=== PATIENT | male | born 1950 | race Caucasian/White ===

== ENCOUNTER → 2017-02-10 | Day surgery (SDC) | payer OTHER ==
[2017-02-05 14:00] LABS: Basophils # (auto) 0 uL; Basophils % (auto) 0.6 % (0.0-2.0); CONDITION Y; Eosinophils # (auto) 0.2 uL; Eosinophils % (auto) 2.6 % (0.0-7.0); Hematocrit 50.5 % (41.0-53.0); Hemoglobin 17.2 g/dL (13.5-17.5); Lymphocytes # (auto) 2.4 uL; Mean Corpuscular Hemoglobin 31.4 pg (28.0-32.0); Mean Corpuscular Volume 92.2 fL (80.0-100.0); Mean Platelet Volume 8.8 fL (7.4-10.4); Monocytes # (auto) 0.8 uL; Monocytes % (auto) 10.6 % (0.0-12.0); Neutrophils # (auto) 4.3 uL; Neutrophils % (auto) 55.2 % (37.0-80.0); Platelet Count (auto) 268 10^3/uL (140-450); Red Cell Distribution Width 12.8 % (11.6-16.0); White Blood Cell 7.8 10^3/uL (4.4-10.8)
[2017-02-05 14:06] LABS: Urine Bilirubin Negative (Negative); Urine Blood Negative /uL (Negative); Urine Color Yellow (Yellow); Urine Glucose Normal (Normal); Urine Ketone Negative (Negative); Urine Nitrite Negative (Negative); Urine RBC <1 /hpf (0 - 3); Urine Squamous Epithelial Cell FEW /hpf (<5); Urine Urobilinogen Normal (Negative); Urine pH 5.5 (5.0-8.0)
[2017-02-05 14:08] LABS: BUN/Creatinine Ratio 15.7; Calcium 8.8 mg/dL (8.5-10.1); Potassium 4.1 mmol/L (3.5-5.1)
[2017-02-05 14:13] LABS: INR 0.98 (0.9-1.15); Partial Thromboplastin Time 28.7 sec (22.64-33.71); Prothrombin Time 10.7 sec (9.37-12.3)
[~2017-02-10] VITALS: Ht 175.3 cm; Wt 87.5 kg
[~2017-02-10] MED LIST: DEXAMETHASONE SOD PHOS 10MG/1ML VIAL INJ ONE; ETOMIDATE (2MG/ML) 20ML VIAL IV ONE; HYDROmorphone HCL 2 MG/ML VL IV PRN; KETOROLAC TROMETH 30 MG/ML 1ML VIAL IV ONE; KETOROLAC TROMETH 30 MG/ML 1ML VIAL ONE; LABETALOL HCL 5 MG/ML 4ML SYRINGE IV PRN; MEPERIDINE HCL (50 MG/ML) 1 ML VIAL ONE; MIDAZOLAM HCL 1MG/1ML-2 ML VIAL IV PRN; MIDAZOLAM HCL 1MG/1ML-2 ML VIAL ONE; MORPHINE SULF INJ 2 MG/ML SYRINGE 1ML IV PRN; ONDANSETRON HCL 4 MG/2 ML VIAL IV ONE; PHENYLEPHRINE HCL 10 MG/ML VL IV ONE; PROPOFOL 10 MG/ML 20 ML IV ONE; SUCCINYLCHOLINE CHLORIDE 20 MG/ML 10ML VIAL IV ONE; ceFAZolin 1GM/50ML D5W 50 ML IV ONE; ePHEDrine SULFATE 50 MG/ML AMP IV PRN; fentaNYL CITRATE 100 MCG/2 ML VL ONE
[2017-02-10 13:03] VITALS: BP 135/89
== END | disposition home or self-care (01) ==
LOC: SUR 06:50
PROVIDERS: ATTEND Urology
DX: N40.1 Benign prostatic hyperplasia with lower urinary tract symptoms (principal); I10 Essential (primary) hypertension; I25.10 Atherosclerotic heart disease of native coronary artery without angina pectoris; G30.9 Alzheimer's disease, unspecified; F02.80 Dementia in other diseases classified elsewhere, unspecified severity, without behavioral disturbance, psychotic disturbance, mood disturbance, and anxiety; Z86.73 Personal history of transient ischemic attack (TIA), and cerebral infarction without residual deficits; B19.10 Unspecified viral hepatitis B without hepatic coma
CPT/HCPCS: 36415; 52649; 80048; 81001; 85025; 85610; 85730; 87086; J0330; J0690; J1100; J1885; J2175; J2250; J2370; J2704; J3010

== ENCOUNTER 2017-09-28 07:55 | Day surgery (SDC) | payer OTHER ==
[2017-09-24 10:11] LABS: Urine Bacteria NONE SEEN /hpf (None Seen); Urine Blood Negative /uL (Negative); Urine Mucus FEW (None Seen); Urine Specific Gravity 1.019 (1.001-1.035); Urine WBC 5 /hpf (0 - 3)
[2017-09-24 10:17] LABS: Basophils # (auto) 0.1 uL; Basophils % (auto) 0.8 % (0.0-2.0); Eosinophils # (auto) 0.3 uL; Hematocrit 55.5 % (41.0-53.0); Hemoglobin 18.5 g/dL (13.5-17.5); Lymphocytes # (auto) 2.7 uL; Lymphocytes % (auto) 38.9 % (10.0-50.0); Mean Corpuscular Hemoglobin 30.5 pg (28.0-32.0); Mean Corpuscular Hgb Conc. 33.4 g/dL (32.0-36.0); Mean Corpuscular Volume 91.3 fL (80.0-100.0); Monocytes % (auto) 14.5 % (0.0-12.0); Neutrophils # (auto) 2.8 uL; Neutrophils % (auto) 41.8 % (37.0-80.0); Nucleated Red Blood Cells % 0.2 %; Platelet Count (auto) 228 10^3/uL (140-450); Red Blood Cells 6.08 10^6/uL (4.5-5.90); Red Cell Distribution Width 13.6 % (11.8-14.3); White Blood Cell 6.8 10^3/uL (4.4-10.8)
[2017-09-24 10:21] LABS: INR 1.01 (0.9-1.15); Partial Thromboplastin Time 29.2 sec (22.64-33.71)
[2017-09-24 10:25] LABS: Potassium 3.9 mmol/L (3.5-5.1)
[~2017-09-28] VITALS: Ht 175.3 cm; Wt 93.0 kg
[~2017-09-28 07:55] MED LIST changes: +AMLO10TA2 PO; +AMLO2.5T PO; -DEXAMETHASONE SOD PHOS 10MG/1ML VIAL INJ ONE; +DONE10TA40 PO; -ETOMIDATE (2MG/ML) 20ML VIAL IV ONE; +GABA300C10 PO; -HYDROmorphone HCL 2 MG/ML VL IV PRN; -KETOROLAC TROMETH 30 MG/ML 1ML VIAL IV ONE; -KETOROLAC TROMETH 30 MG/ML 1ML VIAL ONE; -LABETALOL HCL 5 MG/ML 4ML SYRINGE IV PRN; -MEPERIDINE HCL (50 MG/ML) 1 ML VIAL ONE; +METO1TAB9 PO; -MIDAZOLAM HCL 1MG/1ML-2 ML VIAL IV PRN; -MIDAZOLAM HCL 1MG/1ML-2 ML VIAL ONE; -MORPHINE SULF INJ 2 MG/ML SYRINGE 1ML IV PRN; -ONDANSETRON HCL 4 MG/2 ML VIAL IV ONE; -PHENYLEPHRINE HCL 10 MG/ML VL IV ONE; -PROPOFOL 10 MG/ML 20 ML IV ONE; +SIMV-8 PO; -SUCCINYLCHOLINE CHLORIDE 20 MG/ML 10ML VIAL IV ONE; -ceFAZolin 1GM/50ML D5W 50 ML IV ONE; -ePHEDrine SULFATE 50 MG/ML AMP IV PRN; -fentaNYL CITRATE 100 MCG/2 ML VL ONE
[2017-09-28] MEDS ORDERED: ceFAZolin 1GM/100ML 50 ML IV ONE (08:32)
[2017-09-28] MEDS ORDERED: fentaNYL CITRATE 100 MCG/2 ML VL ONE (11:10)
[2017-09-28] MEDS ORDERED: MEPERIDINE HCL (50 MG/ML) 1 ML VIAL ONE (11:10)
[2017-09-28] MEDS ORDERED: MIDAZOLAM HCL 1MG/1ML-2 ML VIAL ONE (11:10)
[2017-09-28] MEDS ORDERED: DEXAMETHASONE SOD PHOS 10MG/1ML VIAL INJ ONE (11:30)
[2017-09-28] MEDS ORDERED: ETOMIDATE (2MG/ML) 20ML VIAL IV ONE (11:33)
[2017-09-28] MEDS ORDERED: SUCCINYLCHOLINE CHLORIDE 20 MG/ML 10ML VIAL IV ONE (11:44)
[2017-09-28] MEDS ORDERED: MORPHINE SULFATE 4 MG/ML SYR/VIAL IV PRN (11:45)
[2017-09-28] MEDS ORDERED: ePHEDrine SULFATE 50 MG/ML AMP IV PRN (11:45)
[2017-09-28] MEDS ORDERED: LABETALOL HCL 5 MG/ML 4ML SYRINGE IV PRN (11:45)
[2017-09-28] MEDS ORDERED: ONDANSETRON HCL 4 MG/2 ML VIAL IV ONE (11:45)
[2017-09-28] MEDS ORDERED: KETOROLAC TROMETH 30 MG/ML 1ML VIAL IV ONE (11:45)
[2017-09-28] MEDS ORDERED: MORPHINE SULFATE 4 MG/ML SYR/VIAL IV ONE (12:00)
[2017-09-28 14:00] VITALS: BP 135/78
== END 2017-09-28 14:09 | disposition home or self-care (01) ==
LOC: SUR 07:55
PROVIDERS: ATTEND Urology
DX: N32.0 Bladder-neck obstruction (principal)
CPT/HCPCS: 36415; 52640; 80048; 81001; 82962; 85025; 85610; 85730; 88307; J0330; J0690; J1100; J2175; J2250; J3010

== ENCOUNTER 2017-09-30 17:37 | Emergency (ER) | payer OTHER ==
[~2017-09-30] VITALS: Ht 175.3 cm; Wt 93.0 kg
[2017-09-30 21:25] VITALS: BP 140/92
[2017-09-30] MEDS ORDERED: LIDOCAINE 2% JELLY 11ml (GLYDO) ONE (21:39)
== END 2017-10-01 04:42 | disposition home or self-care (01) ==
LOC: ER 17:44
DX: N13.9 Obstructive and reflux uropathy, unspecified (principal); N39.0 Urinary tract infection, site not specified; Z46.6 Encounter for fitting and adjustment of urinary device
CPT/HCPCS: 51702; 81002

== ENCOUNTER 2020-07-18 07:50 | Inpatient (IN) | payer OTHER, MEDICAID ==
[~2020-07-18] VITALS: Ht 172.7 cm; Wt 78.0 kg
[~2020-07-18 07:50] MED LIST changes: +AMLO-483 PO; +AMLO-496 PO; -AMLO10TA2 PO; -AMLO2.5T PO; -DONE10TA40 PO; +DONE1TAB88 PO
[2020-07-18] MEDS ORDERED: SODIUM CHLORIDE 0.9% 500 ML IV ONE (08:15)
[2020-07-18 08:32] LABS: Hemoglobin 19.1 g/dL (13.5-17.5)
[2020-07-18 08:35] LABS: Hematocrit 54.1 % (41.0-53.0); Mean Corpuscular Hemoglobin 32.2 pg (28.0-32.0); Mean Corpuscular Hgb Conc. 35.3 g/dL (32.0-36.0); Mean Corpuscular Volume 91.1 fL (80.0-100.0); Red Blood Cells 5.93 10^6/uL (4.5-5.90); Red Cell Distribution Width 13.8 % (11.8-14.3); White Blood Cell 4.2 10^3/uL (4.4-10.8)
[2020-07-18 08:40] LABS: Basophils % (manual) 0 (0.0-2.0); Blast Cells 0; Eosinophils % (manual) 0 (0-7); Metamyelocytes % 0; Myelocytes % 0; Promyelocytes % 0; Reactive Lymphocytes 0
[2020-07-18 08:54] LABS: Alanine Aminotransferase 32 U/L (16-61); Albumin 2.7 g/dL (3.4-5.0); Anion Gap 11 (5-15); Aspartate Aminotransferase 57 U/L (15-37); Blood Urea Nitrogen 24 mg/dL (7-18); Carbon Dioxide 19 mmol/L (21-32); Chloride 114 mmol/L (98-107); GFR African American 86 mL/min; GFR Non-African American 71 mL/min; Glucose 116 mg/dL (74-106); Magnesium 2.3 mg/dL (1.6-2.6); Potassium 3.6 mmol/L (3.5-5.1); Sodium 144 mmol/L (136-145)
[2020-07-18 08:59] LABS: Alkaline Phosphatase 91 U/L (45-117); Total Protein 7.2 g/dL (6.4-8.2)
[2020-07-18] MEDS ORDERED: AZITHROMYCIN 500MG/ 250ML 250 ML IV ONE (09:00)
[2020-07-18] MEDS ORDERED: methylPREDNISolone SOD SUCC 125 MG/2 ML VL IV ONE (09:00)
[2020-07-18] MEDS ORDERED: ONDANSETRON HCL 4 MG/2 ML VIAL IV PRN (09:30)
[2020-07-18] MEDS ORDERED: SODIUM CHLORIDE 0.9% 1,000 ML IV SCH (09:30)
[2020-07-18] MEDS ORDERED: ONDANSETRON HCL 4 MG/2 ML VIAL IV ONE (09:30)
[2020-07-18] MEDS ORDERED: MORPHINE SULFATE INJECTION 2 MG/ML SYRG IV PRN (09:30)
[2020-07-18] MEDS ORDERED: NITROGLYCERIN 0.4 MG SL TAB SL PRN (09:30)
[2020-07-18] MEDS ORDERED: TAMSULOSIN HYDROCHLORIDE 0.4 MG CAP PO ONE (09:30)
[2020-07-18] MEDS ORDERED: REMDESIVIR PER PHARMACY 0 ML IV SCH (09:45)
[2020-07-18] MEDS: BUDESONIDE (INHALATION) 180 MCG IH IN SCH ×2 (10:00→21:16)
[2020-07-18] MEDS: CHOLECALCIFEROL (VITD3) 2,000 UNIT CAP/TAB PO SCH (10:00)
[2020-07-18] MEDS: ENOXAPARIN SOD 40 MG/0.4 ML SYRINGE SC SCH ×2 (10:00→21:55)
[2020-07-18 10:15] LABS: Band Neutrophils % (manual) 8; Lymphocytes % (manual) 18 (10.0-50.0); Monocytes % (manual) 21 (0-12)
[2020-07-18] MEDS ORDERED: DexAMETHasone SOD PHOS 10MG/1ML VIAL INJ IV ONE (10:30)
[2020-07-18] MEDS ORDERED: CHOLECALCIFEROL (VITD3) 2,000 UNIT CAP/TAB PO ONE (10:30)
[2020-07-18] MEDS ORDERED: ENOXAPARIN SOD 40 MG/0.4 ML SYRINGE SC ONE (10:30)
[2020-07-18] MEDS ORDERED: METOPROLOL SUCCINATE XL 50 MG TAB PO ONE (10:30)
[2020-07-18] MEDS ORDERED: ASCORBIC ACID 1,000 MG TAB PO ONE (10:30)
[2020-07-18] MEDS ORDERED: ZINC SULFATE 220mg CAP or TAB PO ONE (10:30)
[2020-07-18] MEDS ORDERED: DONEPEZIL HYDROCHLORIDE 5 MG TAB PO ONE (10:30)
[2020-07-18] MEDS ORDERED: DOCUSATE SOD 100 MG CAP PO ONE (10:30)
[2020-07-18] MEDS ORDERED: FAMOTIDINE 20 MG TAB PO ONE (10:30)
[2020-07-18 10:36] LABS: Lactic Acid w/Reflex 2.1 mmol/L (0.4-2.0)
[2020-07-18] MEDS: DexAMETHasone SOD PHOS 10MG/1ML VIAL INJ IV SCH (11:12)
[2020-07-18] MEDS: ZINC SULFATE 220mg CAP or TAB PO SCH (11:12)
[2020-07-18] MEDS: DONEPEZIL HYDROCHLORIDE 5 MG TAB PO SCH (11:14)
[2020-07-18] MEDS: DOCUSATE SOD 100 MG CAP PO SCH ×2 (11:14→21:53)
[2020-07-18] MEDS: FAMOTIDINE 20 MG TAB PO SCH (11:18)
[2020-07-18] MEDS: METOPROLOL SUCCINATE XL 50 MG TAB PO SCH (11:19)
[2020-07-18] MEDS: ASCORBIC ACID 1,000 MG TAB PO SCH (11:22)
[2020-07-18] MEDS ORDERED: TOPI25CA5 PO (12:45)
[2020-07-18] MEDS ORDERED: PREG100C PO (12:45)
[2020-07-18] MEDS ORDERED: AML5T PO (12:45)
[2020-07-18 13:23] VITALS: BP 115/61
[2020-07-18] MEDS: GABAPENTIN 300 MG CAP PO SCH ×2 (15:23→21:54)
[2020-07-18] MEDS: IVERMECTIN 3 MG TAB PO ONE (15:24)
[2020-07-18] MEDS ORDERED: REMDESIVIR 200 MG in NS 210ml LOADING DOSE ADULT IV ONE (15:30)
[2020-07-18 16:00] VITALS: BP 140/80
[2020-07-18] MEDS: ZOCOR PO SCH (17:48)
[2020-07-18] MEDS: TAMSULOSIN HYDROCHLORIDE 0.4 MG CAP PO SCH (17:48)
[2020-07-18] MEDS: ALBUTEROL SULF HFA 90MCG INH 200DOSE IN PRN (21:16)
[2020-07-18] MEDS: amLODIPine BESYLATE 5 MG TAB PO SCH (21:55)
[2020-07-19 00:07] VITALS: BP 154/98
[2020-07-19] MEDS: GABAPENTIN 300 MG CAP PO SCH ×3 (05:38→21:35)
[2020-07-19] MEDS: BUDESONIDE (INHALATION) 180 MCG IH IN SCH ×2 (06:15→18:38)
[2020-07-19] MEDS: ALBUTEROL SULF HFA 90MCG INH 200DOSE IN PRN ×2 (06:15→18:38)
[2020-07-19 08:00] VITALS: BP 105/57
[2020-07-19 09:32] LABS: Albumin 2.8 g/dL (3.4-5.0); Calcium 8.2 mg/dL (8.5-10.1); Potassium 3.3 mmol/L (3.5-5.1)
[2020-07-19 09:35] LABS: Bilirubin, Total 0.9 mg/dL (0.2-1.0); Total Protein 7.2 g/dL (6.4-8.2)
[2020-07-19] MEDS: IVERMECTIN 3 MG TAB PO ONE (11:01)
[2020-07-19] MEDS: DexAMETHasone SOD PHOS 10MG/1ML VIAL INJ IV SCH (11:02)
[2020-07-19] MEDS: ZINC SULFATE 220mg CAP or TAB PO SCH (11:02)
[2020-07-19] MEDS: DONEPEZIL HYDROCHLORIDE 5 MG TAB PO SCH (11:03)
[2020-07-19] MEDS: DOCUSATE SOD 100 MG CAP PO SCH ×2 (11:03→21:35)
[2020-07-19] MEDS: FAMOTIDINE 20 MG TAB PO SCH (11:04)
[2020-07-19] MEDS: ENOXAPARIN SOD 40 MG/0.4 ML SYRINGE SC SCH ×2 (11:05→21:36)
[2020-07-19] MEDS: ASCORBIC ACID 1,000 MG TAB PO SCH (11:05)
[2020-07-19] MEDS: CHOLECALCIFEROL (VITD3) 2,000 UNIT CAP/TAB PO SCH (11:05)
[2020-07-19] MEDS: METOPROLOL SUCCINATE XL 50 MG TAB PO SCH (11:29)
[2020-07-19] MEDS: REMDESIVIR 100mg 100 MG in SODIUM CHL 0.9% 230 ML IV SCH (15:10)
[2020-07-19 15:55] VITALS: BP 141/90
[2020-07-19] MEDS: ZOCOR PO SCH (18:00)
[2020-07-19] MEDS: TAMSULOSIN HYDROCHLORIDE 0.4 MG CAP PO SCH (18:45)
[2020-07-19] MEDS: amLODIPine BESYLATE 5 MG TAB PO SCH (21:39)
[2020-07-19] MEDS: HYDROcodone-ACET 5/325MG TAB PO PRN (22:41)
[2020-07-20] VITALS: BP 131/53
[2020-07-20] MEDS: GABAPENTIN 300 MG CAP PO SCH ×3 (05:19→21:46)
[2020-07-20 06:04] LABS: Albumin 2.4 g/dL (3.4-5.0); Calcium 7.9 mg/dL (8.5-10.1); Potassium 3.7 mmol/L (3.5-5.1)
[2020-07-20 06:07] LABS: BUN/Creatinine Ratio 27.7; Bilirubin, Total 0.7 mg/dL (0.2-1.0); Total Protein 6.6 g/dL (6.4-8.2)
[2020-07-20] MEDS: BUDESONIDE (INHALATION) 180 MCG IH IN SCH ×2 (06:45→18:41)
[2020-07-20] MEDS: ALBUTEROL SULF HFA 90MCG INH 200DOSE IN PRN ×2 (06:45→18:41)
[2020-07-20 08:00] VITALS: BP 99/68
[2020-07-20] MEDS: ZINC SULFATE 220mg CAP or TAB PO SCH (09:39)
[2020-07-20] MEDS: DexAMETHasone SOD PHOS 10MG/1ML VIAL INJ IV SCH (09:39)
[2020-07-20] MEDS: DOCUSATE SOD 100 MG CAP PO SCH ×2 (09:40→21:46)
[2020-07-20] MEDS: CHOLECALCIFEROL (VITD3) 2,000 UNIT CAP/TAB PO SCH (09:40)
[2020-07-20] MEDS: METOPROLOL SUCCINATE XL 50 MG TAB PO SCH (09:40)
[2020-07-20] MEDS: DONEPEZIL HYDROCHLORIDE 5 MG TAB PO SCH (09:40)
[2020-07-20] MEDS: FAMOTIDINE 20 MG TAB PO SCH (09:40)
[2020-07-20] MEDS: ASCORBIC ACID 1,000 MG TAB PO SCH (09:40)
[2020-07-20] MEDS: ENOXAPARIN SOD 40 MG/0.4 ML SYRINGE SC SCH ×2 (09:41→21:45)
[2020-07-20] MEDS ORDERED: IOHEXOL 350 MG/ML 100ML IJ ONE (11:14)
[2020-07-20] MEDS: REMDESIVIR 100mg 100 MG in SODIUM CHL 0.9% 230 ML IV SCH (15:16)
[2020-07-20 16:00] VITALS: BP 118/80
[2020-07-20] MEDS: ZOCOR PO SCH (18:00)
[2020-07-20] MEDS: TAMSULOSIN HYDROCHLORIDE 0.4 MG CAP PO SCH (18:10)
[2020-07-20] MEDS: amLODIPine BESYLATE 5 MG TAB PO SCH (21:45)
[2020-07-20 23:59] VITALS: BP 112/66
[2020-07-21] MEDS: APIXABAN 5 MG TAB PO SCH ×3 (00:06→22:35)
[2020-07-21 01:56] LABS: Hematocrit 46.6 % (41.0-53.0); Hemoglobin 16.1 g/dL (13.5-17.5); Mean Corpuscular Hemoglobin 31.6 pg (28.0-32.0); Mean Corpuscular Hgb Conc. 34.5 g/dL (32.0-36.0); Mean Corpuscular Volume 91.5 fL (80.0-100.0); Red Blood Cells 5.09 10^6/uL (4.5-5.90); Red Cell Distribution Width 13.4 % (11.8-14.3); White Blood Cell 9.1 10^3/uL (4.4-10.8)
[2020-07-21] MEDS: HYDROcodone-ACET 5/325MG TAB PO PRN (02:00)
[2020-07-21 02:06] LABS: Basophils % (manual) 0 (0.0-2.0); Blast Cells 0; Eosinophils % (manual) 0 (0-7); Metamyelocytes % 0; Myelocytes % 0; Promyelocytes % 0; Reactive Lymphocytes 0
[2020-07-21 02:19] LABS: INR 1.24 (0.9-1.15); Partial Thromboplastin Time 29.5 sec (23.0-31.2)
[2020-07-21 05:11] LABS: Band Neutrophils % (manual) 3; Lymphocytes % (manual) 3 (10.0-50.0); Monocytes % (manual) 4 (0-12)
[2020-07-21] MEDS: GABAPENTIN 300 MG CAP PO SCH ×3 (05:29→22:36)
[2020-07-21 06:08] LABS: Hematocrit 45.5 % (41.0-53.0); Hemoglobin 16.1 g/dL (13.5-17.5); Mean Corpuscular Hemoglobin 32.3 pg (28.0-32.0); Mean Corpuscular Hgb Conc. 35.4 g/dL (32.0-36.0); Mean Corpuscular Volume 91.2 fL (80.0-100.0); Red Blood Cells 4.98 10^6/uL (4.5-5.90); Red Cell Distribution Width 13.5 % (11.8-14.3); White Blood Cell 8.8 10^3/uL (4.4-10.8)
[2020-07-21 06:24] LABS: Potassium 3.9 mmol/L (3.5-5.1)
[2020-07-21 06:25] LABS: Basophils % (manual) 0 (0.0-2.0); Blast Cells 0; Promyelocytes % 0; Reactive Lymphocytes 0
[2020-07-21 06:52] LABS: BUN/Creatinine Ratio 28.6; CRP High Sensitivity 7.78 mg/dL (< 0.3); Calcium 7.6 mg/dL (8.5-10.1)
[2020-07-21 07:17] LABS: INR 1.24 (0.9-1.15)
[2020-07-21] MEDS: ALBUTEROL SULF HFA 90MCG INH 200DOSE IN PRN ×2 (07:34→20:15)
[2020-07-21] MEDS: BUDESONIDE (INHALATION) 180 MCG IH IN SCH ×2 (07:34→19:30)
[2020-07-21 08:00] VITALS: BP 109/66
[2020-07-21] MEDS ORDERED: APIXABAN 5 MG TAB PO SCH (10:00)
[2020-07-21] MEDS: DexAMETHasone SOD PHOS 10MG/1ML VIAL INJ IV SCH (10:38)
[2020-07-21] MEDS: DOCUSATE SOD 100 MG CAP PO SCH ×2 (10:42→22:35)
[2020-07-21] MEDS: DONEPEZIL HYDROCHLORIDE 5 MG TAB PO SCH (10:42)
[2020-07-21] MEDS: ZINC SULFATE 220mg CAP or TAB PO SCH (10:42)
[2020-07-21] MEDS: FAMOTIDINE 20 MG TAB PO SCH (10:43)
[2020-07-21] MEDS: CHOLECALCIFEROL (VITD3) 2,000 UNIT CAP/TAB PO SCH (10:44)
[2020-07-21] MEDS: METOPROLOL SUCCINATE XL 50 MG TAB PO SCH (10:44)
[2020-07-21] MEDS: ASCORBIC ACID 1,000 MG TAB PO SCH (10:44)
[2020-07-21 11:48] LABS: Band Neutrophils % (manual) 11; Eosinophils % (manual) 1 (0-7); Lymphocytes % (manual) 11 (10.0-50.0); Metamyelocytes % 2; Monocytes % (manual) 6 (0-12); Myelocytes % 1
[2020-07-21] MEDS: REMDESIVIR 100mg 100 MG in SODIUM CHL 0.9% 230 ML IV SCH (14:59)
[2020-07-21 16:00] VITALS: BP 117/80
[2020-07-21] MEDS: ZOCOR PO SCH (18:00)
[2020-07-21] MEDS: TAMSULOSIN HYDROCHLORIDE 0.4 MG CAP PO SCH (18:08)
[2020-07-21] MEDS: amLODIPine BESYLATE 5 MG TAB PO SCH (22:36)
[2020-07-22 00:13] VITALS: BP 123/69
[2020-07-22] MEDS: HYDROcodone-ACET 5/325MG TAB PO PRN (06:23)
[2020-07-22] MEDS: GABAPENTIN 300 MG CAP PO SCH ×3 (06:23→22:34)
[2020-07-22] MEDS: BUDESONIDE (INHALATION) 180 MCG IH IN SCH ×2 (06:25→20:57)
[2020-07-22 07:30] LABS: Hematocrit 46.5 % (41.0-53.0); Hemoglobin 16.4 g/dL (13.5-17.5); Mean Corpuscular Hemoglobin 32.1 pg (28.0-32.0); Mean Corpuscular Hgb Conc. 35.2 g/dL (32.0-36.0); Mean Corpuscular Volume 91.2 fL (80.0-100.0); Red Cell Distribution Width 13.4 % (11.8-14.3); White Blood Cell 12.7 10^3/uL (4.4-10.8)
[2020-07-22 07:40] LABS: Potassium 4.1 mmol/L (3.5-5.1)
[2020-07-22 07:59] LABS: Basophils % (manual) 0 (0.0-2.0); Blast Cells 0; Eosinophils % (manual) 0 (0-7); Metamyelocytes % 0; Monocytes % (manual) 0 (0-12); Myelocytes % 0; Promyelocytes % 0; Reactive Lymphocytes 0
[2020-07-22 08:00] VITALS: BP 96/51
[2020-07-22 08:00] LABS: BUN/Creatinine Ratio 26.8; CRP High Sensitivity 12.7 mg/dL (< 0.3); Calcium 7.9 mg/dL (8.5-10.1)
[2020-07-22] MEDS: ALBUTEROL SULF HFA 90MCG INH 200DOSE IN PRN (09:02)
[2020-07-22] MEDS: DexAMETHasone SOD PHOS 10MG/1ML VIAL INJ IV SCH (09:05)
[2020-07-22] MEDS: FAMOTIDINE 20 MG TAB PO SCH (09:05)
[2020-07-22] MEDS: APIXABAN 5 MG TAB PO SCH ×2 (09:06→22:33)
[2020-07-22] MEDS: ZINC SULFATE 220mg CAP or TAB PO SCH (09:06)
[2020-07-22] MEDS: DOCUSATE SOD 100 MG CAP PO SCH ×2 (09:06→22:33)
[2020-07-22] MEDS: CHOLECALCIFEROL (VITD3) 2,000 UNIT CAP/TAB PO SCH (09:07)
[2020-07-22] MEDS: DONEPEZIL HYDROCHLORIDE 5 MG TAB PO SCH (09:07)
[2020-07-22] MEDS: ASCORBIC ACID 1,000 MG TAB PO SCH (09:07)
[2020-07-22] MEDS: METOPROLOL SUCCINATE XL 50 MG TAB PO SCH (09:08)
[2020-07-22 10:49] LABS: Band Neutrophils % (manual) 1; Lymphocytes % (manual) 4 (10.0-50.0)
[2020-07-22] MEDS: REMDESIVIR 100mg 100 MG in SODIUM CHL 0.9% 230 ML IV SCH (14:33)
[2020-07-22 16:00] VITALS: BP 132/80
[2020-07-22] MEDS: ZOCOR PO SCH (17:09)
[2020-07-22] MEDS: TAMSULOSIN HYDROCHLORIDE 0.4 MG CAP PO SCH (18:40)
[2020-07-22] MEDS: amLODIPine BESYLATE 5 MG TAB PO SCH (22:34)
[2020-07-23] VITALS: BP 112/72
[2020-07-23] MEDS: GABAPENTIN 300 MG CAP PO SCH ×3 (05:48→22:48)
[2020-07-23] MEDS: BUDESONIDE (INHALATION) 180 MCG IH IN SCH ×2 (06:24→19:10)
[2020-07-23 06:40] LABS: Potassium 4.4 mmol/L (3.5-5.1)
[2020-07-23 06:44] LABS: Hematocrit 49.7 % (41.0-53.0); Hemoglobin 17.1 g/dL (13.5-17.5); Mean Corpuscular Hemoglobin 31.5 pg (28.0-32.0); Mean Corpuscular Hgb Conc. 34.5 g/dL (32.0-36.0); Mean Corpuscular Volume 91.3 fL (80.0-100.0); Red Blood Cells 5.45 10^6/uL (4.5-5.90); Red Cell Distribution Width 13.7 % (11.8-14.3); White Blood Cell 15.5 10^3/uL (4.4-10.8)
[2020-07-23 06:55] LABS: CRP High Sensitivity 14.1 mg/dL (< 0.3); Calcium 8.2 mg/dL (8.5-10.1)
[2020-07-23 07:04] LABS: Basophils % (manual) 0 (0.0-2.0); Blast Cells 0; Eosinophils % (manual) 0 (0-7); Metamyelocytes % 0; Myelocytes % 0; Promyelocytes % 0; Reactive Lymphocytes 0
[2020-07-23 08:00] VITALS: BP 114/89
[2020-07-23 10:22] LABS: Band Neutrophils % (manual) 4; Lymphocytes % (manual) 2 (10.0-50.0); Monocytes % (manual) 7 (0-12)
[2020-07-23] MEDS: DexAMETHasone SOD PHOS 10MG/1ML VIAL INJ IV SCH (11:21)
[2020-07-23] MEDS: CHOLECALCIFEROL (VITD3) 2,000 UNIT CAP/TAB PO SCH (11:22)
[2020-07-23] MEDS: ZINC SULFATE 220mg CAP or TAB PO SCH (11:23)
[2020-07-23] MEDS: FAMOTIDINE 20 MG TAB PO SCH (11:23)
[2020-07-23] MEDS: DOCUSATE SOD 100 MG CAP PO SCH ×2 (11:24→22:47)
[2020-07-23] MEDS: APIXABAN 5 MG TAB PO SCH ×2 (11:24→22:47)
[2020-07-23] MEDS: DONEPEZIL HYDROCHLORIDE 5 MG TAB PO SCH (11:25)
[2020-07-23] MEDS: METOPROLOL SUCCINATE XL 50 MG TAB PO SCH (11:27)
[2020-07-23] MEDS: ASCORBIC ACID 1,000 MG TAB PO SCH (11:27)
[2020-07-23] MEDS: ALBUTEROL SULF 2.5 MG/0.5ML(0.5%) NEB SOLN NEB SCH ×2 (12:00→18:00)
[2020-07-23] MEDS ORDERED: FUROSEMIDE 40 MG/4 ML VIAL IV ONE (12:00)
[2020-07-23] MEDS: IPRATROPIUM BROM 0.5 MG/2.5ML INH SOL NEB SCH ×3 (14:00→22:00)
[2020-07-23] MEDS: methylPREDNISolone SOD SUCC 125 MG/2 ML VL IV SCH ×2 (15:14→22:47)
[2020-07-23] MEDS: ACETAMINOPHEN 500 MG TAB PO PRN (15:17)
[2020-07-23 15:48] VITALS: BP 115/77
[2020-07-23] MEDS: ZOCOR PO SCH (18:00)
[2020-07-23] MEDS: TAMSULOSIN HYDROCHLORIDE 0.4 MG CAP PO SCH (18:09)
[2020-07-23] MEDS: ALBUTEROL SULF HFA 90MCG INH 200DOSE IN PRN (19:10)
[2020-07-23] MEDS: amLODIPine BESYLATE 5 MG TAB PO SCH (22:48)
[2020-07-24] VITALS: BP 125/79
[2020-07-24] MEDS: IPRATROPIUM BROM 0.5 MG/2.5ML INH SOL NEB SCH ×5 (02:00→22:00)
[2020-07-24 04:27] VITALS: BP 116/91
[2020-07-24] MEDS: ALBUTEROL SULF 2.5 MG/0.5ML(0.5%) NEB SOLN NEB SCH ×4 (06:00→18:00)
[2020-07-24] MEDS: GABAPENTIN 300 MG CAP PO SCH ×3 (06:04→22:12)
[2020-07-24] MEDS: methylPREDNISolone SOD SUCC 125 MG/2 ML VL IV SCH ×3 (06:05→22:11)
[2020-07-24 08:00] VITALS: BP 110/75
[2020-07-24] MEDS: FAMOTIDINE 20 MG TAB PO SCH (09:27)
[2020-07-24] MEDS: APIXABAN 5 MG TAB PO SCH ×2 (09:27→22:12)
[2020-07-24] MEDS: DONEPEZIL HYDROCHLORIDE 5 MG TAB PO SCH (09:28)
[2020-07-24] MEDS: ZINC SULFATE 220mg CAP or TAB PO SCH (09:28)
[2020-07-24] MEDS: DOCUSATE SOD 100 MG CAP PO SCH ×2 (09:28→22:00)
[2020-07-24] MEDS: ASCORBIC ACID 1,000 MG TAB PO SCH (09:28)
[2020-07-24 09:29] LABS: Hematocrit 54.4 % (41.0-53.0); Hemoglobin 18.4 g/dL (13.5-17.5); Mean Corpuscular Hemoglobin 31.4 pg (28.0-32.0); Mean Corpuscular Hgb Conc. 33.8 g/dL (32.0-36.0); Mean Corpuscular Volume 92.7 fL (80.0-100.0); Red Blood Cells 5.86 10^6/uL (4.5-5.90); Red Cell Distribution Width 14.1 % (11.8-14.3); White Blood Cell 22.7 10^3/uL (4.4-10.8)
[2020-07-24] MEDS: CHOLECALCIFEROL (VITD3) 2,000 UNIT CAP/TAB PO SCH (09:29)
[2020-07-24 09:31] LABS: Basophils % (manual) 0 (0.0-2.0); Blast Cells 0; Eosinophils % (manual) 0 (0-7); Metamyelocytes % 0; Myelocytes % 0; Promyelocytes % 0; Reactive Lymphocytes 0
[2020-07-24 09:32] LABS: Calcium 8.5 mg/dL (8.5-10.1)
[2020-07-24 09:43] LABS: BUN/Creatinine Ratio 27.3; CRP High Sensitivity 15.1 mg/dL (< 0.3)
[2020-07-24] MEDS: METOPROLOL SUCCINATE XL 50 MG TAB PO SCH (10:00)
[2020-07-24] MEDS: BUDESONIDE (INHALATION) 180 MCG IH IN SCH ×2 (11:28→19:28)
[2020-07-24] MEDS ORDERED: APIX5TAB PO (11:50)
[2020-07-24] MEDS ORDERED: ALBUAER3 IN (11:50)
[2020-07-24] MEDS ORDERED: PRED20TA2 PO (12:00)
[2020-07-24] MEDS ORDERED: DOXY-332 PO (12:00)
[2020-07-24 12:09] LABS: Band Neutrophils % (manual) 3; Lymphocytes % (manual) 3 (10.0-50.0); Monocytes % (manual) 4 (0-12)
[2020-07-24 16:00] VITALS: BP 117/80
[2020-07-24] MEDS: ZOCOR PO SCH (18:00)
[2020-07-24] MEDS: TAMSULOSIN HYDROCHLORIDE 0.4 MG CAP PO SCH (18:32)
[2020-07-24] MEDS: ALBUTEROL SULF HFA 90MCG INH 200DOSE IN PRN (19:28)
[2020-07-24] MEDS: amLODIPine BESYLATE 5 MG TAB PO SCH (22:13)
[2020-07-25] VITALS: BP 104/68
[2020-07-25] MEDS: IPRATROPIUM BROM 0.5 MG/2.5ML INH SOL NEB SCH ×5 (02:00→17:59)
[2020-07-25] MEDS: GABAPENTIN 300 MG CAP PO SCH ×3 (05:46→21:34)
[2020-07-25] MEDS: methylPREDNISolone SOD SUCC 125 MG/2 ML VL IV SCH ×3 (05:47→21:34)
[2020-07-25] MEDS: ALBUTEROL SULF 2.5 MG/0.5ML(0.5%) NEB SOLN NEB SCH ×4 (06:00→17:59)
[2020-07-25] MEDS: BUDESONIDE (INHALATION) 180 MCG IH IN SCH ×2 (06:58→19:22)
[2020-07-25 08:00] LABS: Basophils # (auto) 0.1 10 ^3/uL (0-0.2); Eosinophils # (auto) 0 10 ^3/uL (0-0.8); Mean Corpuscular Volume 91.9 fL (80.0-100.0); Monocytes # (auto) 0.8 10 ^3/uL (0-1.3)
[2020-07-25 08:03] LABS: Basophils % (auto) 0.5 % (0.0-2.0); Hematocrit 52.2 % (41.0-53.0); Hemoglobin 18.2 g/dL (13.5-17.5); Lymphocytes # (auto) 0.4 10 ^3/uL (0.4-5.4); Lymphocytes % (auto) 1.6 % (10.0-50.0); Mean Corpuscular Hemoglobin 32.1 pg (28.0-32.0); Mean Corpuscular Hgb Conc. 34.9 g/dL (32.0-36.0); Monocytes % (auto) 3.8 % (0.0-12.0); Neutrophils # (auto) 21.3 10 ^3/uL (1.6-8.6); Neutrophils % (auto) 94.1 % (37.0-80.0); Red Blood Cells 5.68 10^6/uL (4.5-5.90); Red Cell Distribution Width 13.9 % (11.8-14.3); White Blood Cell 22.6 10^3/uL (4.4-10.8)
[2020-07-25 08:12] VITALS: BP 119/71
[2020-07-25 08:23] LABS: Potassium 4.1 mmol/L (3.5-5.1)
[2020-07-25 08:36] LABS: BUN/Creatinine Ratio 29.5
[2020-07-25 08:37] LABS: CRP High Sensitivity 8.92 mg/dL (< 0.3); Calcium 8.2 mg/dL (8.5-10.1)
[2020-07-25] MEDS: ZINC SULFATE 220mg CAP or TAB PO SCH (09:39)
[2020-07-25] MEDS: APIXABAN 5 MG TAB PO SCH ×2 (09:40→21:35)
[2020-07-25] MEDS: DONEPEZIL HYDROCHLORIDE 5 MG TAB PO SCH (09:40)
[2020-07-25] MEDS: DOCUSATE SOD 100 MG CAP PO SCH ×2 (09:40→21:34)
[2020-07-25] MEDS: ASCORBIC ACID 1,000 MG TAB PO SCH (09:41)
[2020-07-25] MEDS: CHOLECALCIFEROL (VITD3) 2,000 UNIT CAP/TAB PO SCH (09:41)
[2020-07-25] MEDS: FAMOTIDINE 20 MG TAB PO SCH (09:41)
[2020-07-25] MEDS: METOPROLOL SUCCINATE XL 50 MG TAB PO SCH (10:00)
[2020-07-25] MEDS: ALPRAZolam 0.25 MG TAB PO PRN (14:24)
[2020-07-25 16:00] VITALS: BP 126/77
[2020-07-25] MEDS: ZOCOR PO SCH (17:59)
[2020-07-25] MEDS: TAMSULOSIN HYDROCHLORIDE 0.4 MG CAP PO SCH (18:01)
[2020-07-25] MEDS: ALBUTEROL SULF HFA 90MCG INH 200DOSE IN PRN (19:22)
[2020-07-25] MEDS: MORPHINE SULFATE INJECTION 2 MG/ML SYRG IV PRN (21:36)
[2020-07-25] MEDS: amLODIPine BESYLATE 5 MG TAB PO SCH (21:36)
[2020-07-25] MEDS: HYDROcodone-ACET 5/325MG TAB PO PRN (23:21)
[2020-07-26] VITALS: BP 110/60
[2020-07-26] MEDS: MORPHINE SULFATE INJECTION 2 MG/ML SYRG IV PRN (01:23)
[2020-07-26] MEDS: ALPRAZolam 0.25 MG TAB PO PRN ×2 (03:23→10:49)
[2020-07-26] MEDS: methylPREDNISolone SOD SUCC 125 MG/2 ML VL IV SCH ×3 (05:27→21:26)
[2020-07-26] MEDS: GABAPENTIN 300 MG CAP PO SCH ×3 (05:27→21:26)
[2020-07-26] MEDS: BUDESONIDE (INHALATION) 180 MCG IH IN SCH ×2 (06:00→20:07)
[2020-07-26 08:00] VITALS: BP 117/84
[2020-07-26 08:18] LABS: Basophils # (auto) 0 10 ^3/uL (0-0.2); Basophils % (auto) 0.2 % (0.0-2.0); Eosinophils # (auto) 0 10 ^3/uL (0-0.8); Hematocrit 51.4 % (41.0-53.0); Hemoglobin 17.6 g/dL (13.5-17.5); Lymphocytes # (auto) 0.4 10 ^3/uL (0.4-5.4); Lymphocytes % (auto) 2.1 % (10.0-50.0); Mean Corpuscular Hemoglobin 31.4 pg (28.0-32.0); Mean Corpuscular Hgb Conc. 34.2 g/dL (32.0-36.0); Mean Corpuscular Volume 91.7 fL (80.0-100.0); Monocytes # (auto) 0.7 10 ^3/uL (0-1.3); Monocytes % (auto) 3.8 % (0.0-12.0); Neutrophils # (auto) 17.9 10 ^3/uL (1.6-8.6); Neutrophils % (auto) 93.9 % (37.0-80.0); Nucleated Red Blood Cells % 0.1 %; Red Blood Cells 5.61 10^6/uL (4.5-5.90); Red Cell Distribution Width 13.7 % (11.8-14.3); White Blood Cell 19.1 10^3/uL (4.4-10.8)
[2020-07-26 08:33] LABS: Potassium 4.3 mmol/L (3.5-5.1)
[2020-07-26 08:55] LABS: BUN/Creatinine Ratio 33.3
[2020-07-26 08:56] LABS: CRP High Sensitivity 6.05 mg/dL (< 0.3); Calcium 7.9 mg/dL (8.5-10.1)
[2020-07-26] MEDS: ZINC SULFATE 220mg CAP or TAB PO SCH (10:00)
[2020-07-26] MEDS: DONEPEZIL HYDROCHLORIDE 5 MG TAB PO SCH (10:00)
[2020-07-26] MEDS: DOCUSATE SOD 100 MG CAP PO SCH ×2 (10:00→21:26)
[2020-07-26] MEDS: FAMOTIDINE 20 MG TAB PO SCH (10:00)
[2020-07-26] MEDS: APIXABAN 5 MG TAB PO SCH ×2 (10:00→21:26)
[2020-07-26] MEDS: ASCORBIC ACID 1,000 MG TAB PO SCH (10:00)
[2020-07-26] MEDS: CHOLECALCIFEROL (VITD3) 2,000 UNIT CAP/TAB PO SCH (10:00)
[2020-07-26] MEDS: METOPROLOL SUCCINATE XL 50 MG TAB PO SCH (10:00)
[2020-07-26 16:00] VITALS: BP 116/80
[2020-07-26] MEDS: ZOCOR PO SCH (17:52)
[2020-07-26] MEDS: TAMSULOSIN HYDROCHLORIDE 0.4 MG CAP PO SCH (17:52)
[2020-07-26] MEDS: ACETAMINOPHEN 500 MG TAB PO PRN (20:02)
[2020-07-26] MEDS: ALBUTEROL SULF HFA 90MCG INH 200DOSE IN PRN (20:07)
[2020-07-26] MEDS: amLODIPine BESYLATE 5 MG TAB PO SCH (21:32)
[2020-07-26 23:30] VITALS: BP 109/68
[2020-07-27] MEDS: methylPREDNISolone SOD SUCC 125 MG/2 ML VL IV SCH ×3 (05:22→22:19)
[2020-07-27] MEDS: GABAPENTIN 300 MG CAP PO SCH ×3 (05:22→22:19)
[2020-07-27] MEDS: ALBUTEROL SULF HFA 90MCG INH 200DOSE IN PRN ×2 (06:32→19:56)
[2020-07-27] MEDS: BUDESONIDE (INHALATION) 180 MCG IH IN SCH ×2 (06:32→19:56)
[2020-07-27 07:08] LABS: Basophils # (auto) 0 10 ^3/uL (0-0.2); Basophils % (auto) 0.1 % (0.0-2.0); Eosinophils # (auto) 0 10 ^3/uL (0-0.8); Hematocrit 49.2 % (41.0-53.0); Hemoglobin 17.1 g/dL (13.5-17.5); Lymphocytes # (auto) 0.4 10 ^3/uL (0.4-5.4); Lymphocytes % (auto) 2.8 % (10.0-50.0); Mean Corpuscular Hgb Conc. 34.8 g/dL (32.0-36.0); Mean Corpuscular Volume 91.9 fL (80.0-100.0); Monocytes # (auto) 0.5 10 ^3/uL (0-1.3); Monocytes % (auto) 3.7 % (0.0-12.0); Neutrophils # (auto) 13.9 10 ^3/uL (1.6-8.6); Neutrophils % (auto) 93.4 % (37.0-80.0); Red Blood Cells 5.35 10^6/uL (4.5-5.90); Red Cell Distribution Width 13.1 % (11.8-14.3); White Blood Cell 14.8 10^3/uL (4.4-10.8)
[2020-07-27 07:33] LABS: Potassium 4.5 mmol/L (3.5-5.1)
[2020-07-27 07:58] LABS: CRP High Sensitivity 4.12 mg/dL (< 0.3); Calcium 7.6 mg/dL (8.5-10.1)
[2020-07-27 08:23] VITALS: BP 118/74
[2020-07-27] MEDS: ASCORBIC ACID 1,000 MG TAB PO SCH (11:25)
[2020-07-27] MEDS: FAMOTIDINE 20 MG TAB PO SCH (11:25)
[2020-07-27] MEDS: DONEPEZIL HYDROCHLORIDE 5 MG TAB PO SCH (11:25)
[2020-07-27] MEDS: APIXABAN 5 MG TAB PO SCH ×2 (11:25→22:19)
[2020-07-27] MEDS: DOCUSATE SOD 100 MG CAP PO SCH ×2 (11:25→22:19)
[2020-07-27] MEDS: CHOLECALCIFEROL (VITD3) 2,000 UNIT CAP/TAB PO SCH (11:25)
[2020-07-27] MEDS: ZINC SULFATE 220mg CAP or TAB PO SCH (11:25)
[2020-07-27] MEDS: METOPROLOL SUCCINATE XL 50 MG TAB PO SCH (11:25)
[2020-07-27 16:00] VITALS: BP 121/75
[2020-07-27] MEDS: ZOCOR PO SCH (18:00)
[2020-07-27] MEDS: TAMSULOSIN HYDROCHLORIDE 0.4 MG CAP PO SCH (18:16)
[2020-07-27 22:00] VITALS: BP 116/67
[2020-07-27] MEDS: amLODIPine BESYLATE 5 MG TAB PO SCH (22:00)
[2020-07-27] MEDS: ACETAMINOPHEN 500 MG TAB PO PRN (23:10)
[2020-07-27] MEDS: ALPRAZolam 0.25 MG TAB PO PRN (23:11)
[2020-07-28] VITALS: BP 120/74
[2020-07-28] MEDS: methylPREDNISolone SOD SUCC 125 MG/2 ML VL IV SCH ×3 (06:36→21:59)
[2020-07-28] MEDS: GABAPENTIN 300 MG CAP PO SCH ×3 (06:36→22:00)
[2020-07-28] MEDS: BUDESONIDE (INHALATION) 180 MCG IH IN SCH ×2 (06:40→22:00)
[2020-07-28 07:03] LABS: Basophils # (auto) 0 10 ^3/uL (0-0.2); Basophils % (auto) 0.1 % (0.0-2.0); Eosinophils # (auto) 0 10 ^3/uL (0-0.8); Eosinophils % (auto) 0.1 % (0.0-7.0); Hemoglobin 17.4 g/dL (13.5-17.5); Lymphocytes # (auto) 0.4 10 ^3/uL (0.4-5.4); Lymphocytes % (auto) 2.9 % (10.0-50.0); Mean Corpuscular Hemoglobin 31.5 pg (28.0-32.0); Mean Corpuscular Hgb Conc. 34.2 g/dL (32.0-36.0); Monocytes # (auto) 0.6 10 ^3/uL (0-1.3); Neutrophils # (auto) 14.1 10 ^3/uL (1.6-8.6); Neutrophils % (auto) 92.9 % (37.0-80.0); Nucleated Red Blood Cells % 0.1 %; Red Blood Cells 5.54 10^6/uL (4.5-5.90); Red Cell Distribution Width 13.6 % (11.8-14.3); White Blood Cell 15.2 10^3/uL (4.4-10.8)
[2020-07-28 07:31] LABS: BUN/Creatinine Ratio 33.7; Calcium 8.1 mg/dL (8.5-10.1); Magnesium 2.9 mg/dL (1.6-2.6); Potassium 4.6 mmol/L (3.5-5.1)
[2020-07-28 08:00] VITALS: BP 111/75
[2020-07-28] MEDS: ASCORBIC ACID 1,000 MG TAB PO SCH (10:00)
[2020-07-28] MEDS: DONEPEZIL HYDROCHLORIDE 5 MG TAB PO SCH (10:00)
[2020-07-28] MEDS: FAMOTIDINE 20 MG TAB PO SCH (10:00)
[2020-07-28] MEDS: CHOLECALCIFEROL (VITD3) 2,000 UNIT CAP/TAB PO SCH (10:00)
[2020-07-28] MEDS: DOCUSATE SOD 100 MG CAP PO SCH ×2 (10:00→21:59)
[2020-07-28] MEDS: ZINC SULFATE 220mg CAP or TAB PO SCH (10:00)
[2020-07-28] MEDS: METOPROLOL SUCCINATE XL 50 MG TAB PO SCH (11:15)
[2020-07-28] MEDS: APIXABAN 5 MG TAB PO SCH ×2 (11:15→21:59)
[2020-07-28 16:00] VITALS: BP 124/77
[2020-07-28] MEDS: ZOCOR PO SCH (18:00)
[2020-07-28] MEDS: TAMSULOSIN HYDROCHLORIDE 0.4 MG CAP PO SCH (18:00)
[2020-07-28] MEDS: LORazepam 2MG/ML-1ML VIAL IV PRN (22:00)
[2020-07-28] MEDS: amLODIPine BESYLATE 5 MG TAB PO SCH (22:00)
[2020-07-28] MEDS: ALBUTEROL SULF HFA 90MCG INH 200DOSE IN PRN (22:20)
[2020-07-29] VITALS: BP 130/80
[2020-07-29] MEDS: LORazepam 2MG/ML-1ML VIAL IV PRN ×3 (04:37→17:30)
[2020-07-29] MEDS: methylPREDNISolone SOD SUCC 125 MG/2 ML VL IV SCH ×3 (05:37→21:58)
[2020-07-29] MEDS: GABAPENTIN 300 MG CAP PO SCH ×4 (05:38→22:00)
[2020-07-29] MEDS: MORPHINE SULFATE INJECTION 2 MG/ML SYRG IV PRN ×4 (05:38→19:00)
[2020-07-29] MEDS: BUDESONIDE (INHALATION) 0.5 MG/2 ML NEB NEB SCH ×2 (06:55→20:16)
[2020-07-29] MEDS: ALBUTEROL SULF 2.5 MG/0.5ML(0.5%) NEB SOLN NEB PRN ×2 (06:55→20:16)
[2020-07-29 08:00] VITALS: BP 121/75
[2020-07-29 09:15] LABS: Basophils # (auto) 0 10 ^3/uL (0-0.2); Eosinophils # (auto) 0 10 ^3/uL (0-0.8); Nucleated Red Blood Cells % 0.1 %; Red Cell Distribution Width 13.3 % (11.8-14.3)
[2020-07-29 09:17] LABS: Basophils % (auto) 0.2 % (0.0-2.0); Hematocrit 52.7 % (41.0-53.0); Hemoglobin 17.7 g/dL (13.5-17.5); Lymphocytes # (auto) 0.4 10 ^3/uL (0.4-5.4); Lymphocytes % (auto) 1.9 % (10.0-50.0); Mean Corpuscular Hemoglobin 31.2 pg (28.0-32.0); Mean Corpuscular Hgb Conc. 33.6 g/dL (32.0-36.0); Mean Corpuscular Volume 92.9 fL (80.0-100.0); Monocytes # (auto) 0.9 10 ^3/uL (0-1.3); Monocytes % (auto) 4.6 % (0.0-12.0); Neutrophils # (auto) 17.5 10 ^3/uL (1.6-8.6); Neutrophils % (auto) 93.3 % (37.0-80.0); Red Blood Cells 5.68 10^6/uL (4.5-5.90); White Blood Cell 18.7 10^3/uL (4.4-10.8)
[2020-07-29 09:39] LABS: Anion Gap 8 (5-15); BUN/Creatinine Ratio 34.1; Blood Urea Nitrogen 29 mg/dL (7-18); Carbon Dioxide 24 mmol/L (21-32); Chloride 107 mmol/L (98-107); GFR African American 115 mL/min; GFR Non-African American 95 mL/min; Glucose 109 mg/dL (74-106); Magnesium 3.2 mg/dL (1.6-2.6); Potassium 4.5 mmol/L (3.5-5.1); Sodium 139 mmol/L (136-145)
[2020-07-29 09:50] LABS: CRP High Sensitivity 2.16 mg/dL (< 0.3)
[2020-07-29] MEDS: DONEPEZIL HYDROCHLORIDE 5 MG TAB PO SCH (10:00)
[2020-07-29] MEDS: DOCUSATE SOD 100 MG CAP PO SCH ×2 (10:00→22:00)
[2020-07-29] MEDS: ASCORBIC ACID 1,000 MG TAB PO SCH (10:00)
[2020-07-29] MEDS: APIXABAN 5 MG TAB PO SCH ×2 (10:00→22:00)
[2020-07-29] MEDS: CHOLECALCIFEROL (VITD3) 2,000 UNIT CAP/TAB PO SCH (10:00)
[2020-07-29] MEDS: FAMOTIDINE 20 MG TAB PO SCH (10:00)
[2020-07-29] MEDS: METOPROLOL SUCCINATE XL 50 MG TAB PO SCH (10:00)
[2020-07-29] MEDS: ZINC SULFATE 220mg CAP or TAB PO SCH (10:00)
[2020-07-29] MEDS ORDERED: HALOPERIDOL LACTATE 5 MG/ML INJ VIAL ONE (15:11)
[2020-07-29 15:30] LABS: Albumin 2.2 g/dL (3.4-5.0); Magnesium 2.9 mg/dL (1.6-2.6)
[2020-07-29 15:35] LABS: Bilirubin, Direct 0.7 mg/dL (0-0.2); Bilirubin, Total 1.3 mg/dL (0.2-1.0); Phosphorus 3.1 mg/dL (2.5-4.90); Total Protein 6.9 g/dL (6.4-8.2)
[2020-07-29 16:00] VITALS: BP 120/77
[2020-07-29] MEDS: TAMSULOSIN HYDROCHLORIDE 0.4 MG CAP PO SCH (18:00)
[2020-07-29] MEDS ORDERED: PPN PER PHARMACY IV NR ×5 (20:00)
[2020-07-29] MEDS: ATORVASTATIN 20 MG TAB PO SCH (22:00)
[2020-07-29] MEDS: amLODIPine BESYLATE 5 MG TAB PO SCH (22:00)
[2020-07-29] MEDS: HALOPERIDOL LACTATE 5 MG/ML INJ VIAL IM PRN (22:57)
[2020-07-30] VITALS: BP 125/88
[2020-07-30] MEDS ORDERED: DEXTROSE (50%) 50ML SYRG IV SCH
[2020-07-30] MEDS: LORazepam 2MG/ML-1ML VIAL IV PRN ×4 (01:29→23:32)
[2020-07-30] MEDS: ACCU-CHEK COMFORT CURVE STRIP VI SCH ×5 (05:45→23:40)
[2020-07-30] MEDS: InsuLIN REG 1unit/0.01ml Soln (100units/ml) SC SCH ×5 (05:46→23:47)
[2020-07-30] MEDS: methylPREDNISolone SOD SUCC 125 MG/2 ML VL IV SCH ×3 (05:53→21:29)
[2020-07-30] MEDS: MORPHINE SULFATE INJECTION 2 MG/ML SYRG IV PRN (05:54)
[2020-07-30] MEDS: GABAPENTIN 300 MG CAP PO SCH ×3 (06:05→21:31)
[2020-07-30] MEDS: BUDESONIDE (INHALATION) 0.5 MG/2 ML NEB NEB SCH ×2 (07:34→21:08)
[2020-07-30] MEDS: ALBUTEROL SULF 2.5 MG/0.5ML(0.5%) NEB SOLN NEB PRN ×2 (07:34→21:08)
[2020-07-30 08:00] VITALS: BP 140/80
[2020-07-30 08:35] LABS: INR 1.53 (0.9-1.15)
[2020-07-30 08:44] LABS: Potassium 4.8 mmol/L (3.5-5.1)
[2020-07-30 08:50] LABS: Albumin 1.9 g/dL (3.4-5.0); BUN/Creatinine Ratio 29.8; Bilirubin, Total 1.5 mg/dL (0.2-1.0); Calcium 8.1 mg/dL (8.5-10.1); Magnesium 3.2 mg/dL (1.6-2.6); Phosphorus 2.6 mg/dL (2.5-4.90); Total Protein 6.6 g/dL (6.4-8.2)
[2020-07-30] MEDS: DONEPEZIL HYDROCHLORIDE 5 MG TAB PO SCH (09:09)
[2020-07-30] MEDS: ZINC SULFATE 220mg CAP or TAB PO SCH (09:09)
[2020-07-30] MEDS: DOCUSATE SOD 100 MG CAP PO SCH ×2 (09:10→21:30)
[2020-07-30] MEDS: APIXABAN 5 MG TAB PO SCH ×2 (09:10→21:30)
[2020-07-30] MEDS: FAMOTIDINE 20 MG TAB PO SCH (09:10)
[2020-07-30] MEDS: ASCORBIC ACID 1,000 MG TAB PO SCH (09:10)
[2020-07-30] MEDS: METOPROLOL SUCCINATE XL 50 MG TAB PO SCH (09:10)
[2020-07-30] MEDS: CHOLECALCIFEROL (VITD3) 2,000 UNIT CAP/TAB PO SCH (09:11)
[2020-07-30] MEDS ORDERED: TPN PER PHARMACY 0 ML IV SCH (11:00)
[2020-07-30] MEDS: HALOPERIDOL LACTATE 5 MG/ML INJ VIAL IM PRN ×2 (11:05→21:30)
[2020-07-30 16:00] VITALS: BP 106/78
[2020-07-30] MEDS: TAMSULOSIN HYDROCHLORIDE 0.4 MG CAP PO SCH (17:01)
[2020-07-30] MEDS ORDERED: PPN PER PHARMACY IV NR ×6 (20:00)
[2020-07-30] MEDS: ATORVASTATIN 20 MG TAB PO SCH (21:31)
[2020-07-30] MEDS: amLODIPine BESYLATE 5 MG TAB PO SCH (21:31)
[2020-07-30 23:47] VITALS: BP 143/100
[2020-07-31] VITALS (83 sets, daily range): BP systolic 64–158; BP diastolic 36–104
[2020-07-31] MEDS: AMIODARONE 450mg/250ml AE 250 ML IV SCH ×2 (00:15→09:15)
[2020-07-31] MEDS: MORPHINE SULFATE INJECTION 2 MG/ML SYRG IV PRN (00:23)
[2020-07-31] MEDS ORDERED: SUCCINYLCHOLINE CHLORIDE 20 MG/ML 10ML VIAL IV ONE ×2 (01:16→01:45)
[2020-07-31] MEDS ORDERED: ETOMIDATE (2MG/ML) 20ML VIAL IV ONE ×2 (01:16→01:45)
[2020-07-31] MEDS ORDERED: MIDAZOLAM DRIP 50 mg/50mL 50 ML IV ONE (01:35)
[2020-07-31] MEDS: MIDAZOLAM DRIP 50 mg/50mL 50 ML IV SCH ×3 (01:40→13:26)
[2020-07-31] MEDS ORDERED: PROPOFOL 100 ML IV ONE (01:50)
[2020-07-31] MEDS: PROPOFOL 100 ML IV SCH ×2 (01:55→02:00)
[2020-07-31] MEDS ORDERED: fentaNYL Drip 2500mCg/250mlNS 250 ML IV SCH (02:45)
[2020-07-31] MEDS ORDERED: AMIODARONE 450mg/250ml AE 250 ML IV SCH ×3 (02:45→08:45)
[2020-07-31] MEDS ORDERED: AMIODARONE HCL 150 MG in D5W 5% 100 ML IV ONE ×2 (02:45→03:00)
[2020-07-31] MEDS ORDERED: DIGOXIN (250MCG/ML) 2 ML AMPULE ONE (02:52)
[2020-07-31] MEDS ORDERED: dilTIAZem 25 MG/5 ML VIAL IV ONE ×2 (02:53→03:00)
[2020-07-31] MEDS: PHENYLEPHRINE IV 250 ML IV SCH ×3 (03:00→20:00)
[2020-07-31] MEDS: dilTIAZem 125mg/125ml BAG KIT 125 ML IV SCH ×2 (03:00→13:20)
[2020-07-31] MEDS ORDERED: PHENYLEPHRINE IV 250 ML IV ONE (03:03)
[2020-07-31] MEDS ORDERED: DIGOXIN (250MCG/ML) 2 ML AMPULE IV ONE (03:15)
[2020-07-31] MEDS: GABAPENTIN 300 MG CAP PO SCH ×3 (05:21→21:58)
[2020-07-31] MEDS: InsuLIN REG 1unit/0.01ml Soln (100units/ml) SC SCH ×4 (05:39→23:24)
[2020-07-31] MEDS: ACCU-CHEK COMFORT CURVE STRIP VI SCH ×4 (05:39→23:34)
[2020-07-31] MEDS: methylPREDNISolone SOD SUCC 125 MG/2 ML VL IV SCH (05:51)
[2020-07-31] MEDS: BUDESONIDE (INHALATION) 0.5 MG/2 ML NEB NEB SCH ×2 (06:30→18:06)
[2020-07-31] MEDS: ALBUTEROL SULF 2.5 MG/0.5ML(0.5%) NEB SOLN NEB PRN ×2 (06:30→18:06)
[2020-07-31 09:07] LABS: Hematocrit 53.3 % (41.0-53.0); Hemoglobin 17.8 g/dL (13.5-17.5); Mean Corpuscular Hemoglobin 31.1 pg (28.0-32.0); Mean Corpuscular Hgb Conc. 33.3 g/dL (32.0-36.0); Mean Corpuscular Volume 93.4 fL (80.0-100.0); Red Blood Cells 5.71 10^6/uL (4.5-5.90); Red Cell Distribution Width 13.5 % (11.8-14.3); White Blood Cell 26.4 10^3/uL (4.4-10.8)
[2020-07-31 09:18] LABS: Band Neutrophils % (manual) 0; Basophils % (manual) 0 (0.0-2.0); Blast Cells 0; Eosinophils % (manual) 0 (0-7); Metamyelocytes % 0; Promyelocytes % 0; Reactive Lymphocytes 0
[2020-07-31 09:22] LABS: Albumin 1.9 g/dL (3.4-5.0); Calcium 8.4 mg/dL (8.5-10.1); Magnesium 3.6 mg/dL (1.6-2.6)
[2020-07-31 09:28] LABS: BUN/Creatinine Ratio 30.4; Bilirubin, Total 1.7 mg/dL (0.2-1.0); Phosphorus 6.5 mg/dL (2.5-4.90); Total Protein 6.9 g/dL (6.4-8.2)
[2020-07-31 09:38] LABS: Potassium 5.7 mmol/L (3.5-5.1)
[2020-07-31] MEDS: DIGOXIN (250MCG/ML) 2 ML AMPULE IV SCH (10:00)
[2020-07-31 10:09] LABS: Lymphocytes % (manual) 6 (10.0-50.0); Monocytes % (manual) 3 (0-12); Myelocytes % 1
[2020-07-31] MEDS: DONEPEZIL HYDROCHLORIDE 5 MG TAB PO SCH (10:33)
[2020-07-31] MEDS: ZINC SULFATE 220mg CAP or TAB PO SCH (10:33)
[2020-07-31] MEDS: APIXABAN 5 MG TAB PO SCH ×2 (10:34→21:58)
[2020-07-31] MEDS: DOCUSATE SOD 100 MG CAP PO SCH ×2 (10:34→21:58)
[2020-07-31] MEDS: CHOLECALCIFEROL (VITD3) 2,000 UNIT CAP/TAB PO SCH (10:35)
[2020-07-31] MEDS: ASCORBIC ACID 1,000 MG TAB PO SCH (10:35)
[2020-07-31] MEDS: FAMOTIDINE 20 MG TAB PO SCH (10:35)
[2020-07-31] MEDS: SODIUM BICARB 50ML SYR 50 ML in SOD CHL 0.45% 1,000 ML IV SCH ×2 (12:16→20:41)
[2020-07-31] MEDS: METOPROLOL SUCCINATE XL 50 MG TAB PO SCH (15:11)
[2020-07-31] MEDS ORDERED: SODIUM BICARBONATE 8.4 % INJ 50ML VIAL IV ONE (15:15)
[2020-07-31] MEDS: TAMSULOSIN HYDROCHLORIDE 0.4 MG CAP PO SCH (18:00)
[2020-07-31] MEDS ORDERED: DOPamine 1600MCG/ML D5W 250 ML IV ONE (18:56)
[2020-07-31] MEDS ORDERED: NOREPINEPHRINE 8 MG/250ML KIT 250 ML IV ONE (19:13)
[2020-07-31] MEDS ORDERED: PPN PER PHARMACY IV NR ×4 (20:00)
[2020-07-31] MEDS: fentaNYL Drip 2500mCg/250mlNS 250 ML IV SCH (20:00)
[2020-07-31] MEDS: NOREPINEPHRINE 8 MG/250ML KIT 250 ML IV SCH (21:49)
[2020-07-31] MEDS: methylPREDNISolone SOD SUCC 40 MG/ML VL IV SCH (21:57)
[2020-07-31] MEDS: amLODIPine BESYLATE 5 MG TAB PO SCH (21:58)
[2020-07-31] MEDS: ATORVASTATIN 20 MG TAB PO SCH (21:58)
[2020-08-01] VITALS (93 sets, daily range): BP systolic 83–152; BP diastolic 49–78
[2020-08-01] MEDS: ACETAMINOPHEN 650 mg PER 20.3 mL UD GT PRN ×2 (02:40→04:12)
[2020-08-01] MEDS: fentaNYL Drip 2500mCg/250mlNS 250 ML IV SCH (03:07)
[2020-08-01] MEDS: PHENYLEPHRINE IV 250 ML IV SCH ×3 (04:13→19:47)
[2020-08-01] MEDS: GABAPENTIN 300 MG CAP PO SCH ×3 (05:29→21:52)
[2020-08-01 05:33] LABS: Basophils # (auto) 0 10 ^3/uL (0-0.2); Basophils % (auto) 0.1 % (0.0-2.0); Eosinophils # (auto) 0 10 ^3/uL (0-0.8); Hematocrit 44.2 % (41.0-53.0); Hemoglobin 14.7 g/dL (13.5-17.5); Lymphocytes # (auto) 0.3 10 ^3/uL (0.4-5.4); Lymphocytes % (auto) 1.8 % (10.0-50.0); Mean Corpuscular Hemoglobin 31.4 pg (28.0-32.0); Mean Corpuscular Hgb Conc. 33.2 g/dL (32.0-36.0); Mean Corpuscular Volume 94.5 fL (80.0-100.0); Monocytes # (auto) 0.5 10 ^3/uL (0-1.3); Monocytes % (auto) 2.9 % (0.0-12.0); Neutrophils # (auto) 14.8 10 ^3/uL (1.6-8.6); Neutrophils % (auto) 95.2 % (37.0-80.0); Red Blood Cells 4.67 10^6/uL (4.5-5.90); Red Cell Distribution Width 13.8 % (11.8-14.3); White Blood Cell 15.6 10^3/uL (4.4-10.8)
[2020-08-01] MEDS: ACCU-CHEK COMFORT CURVE STRIP VI SCH ×3 (05:39→18:12)
[2020-08-01] MEDS: InsuLIN REG 1unit/0.01ml Soln (100units/ml) SC SCH ×3 (05:39→18:00)
[2020-08-01 05:46] LABS: Potassium 4.9 mmol/L (3.5-5.1)
[2020-08-01] MEDS: ALBUTEROL SULF 2.5 MG/0.5ML(0.5%) NEB SOLN NEB PRN ×2 (06:00→22:03)
[2020-08-01] MEDS: BUDESONIDE (INHALATION) 0.5 MG/2 ML NEB NEB SCH ×2 (06:00→22:03)
[2020-08-01 06:01] LABS: Albumin 1.4 g/dL (3.4-5.0); BUN/Creatinine Ratio 27.1; Bilirubin, Total 1.3 mg/dL (0.2-1.0); Calcium 6.9 mg/dL (8.5-10.1); Phosphorus 2.4 mg/dL (2.5-4.90); Pre Albumin 12.1 mg/dL (20.0-40.0); Total Protein 5.4 g/dL (6.4-8.2)
[2020-08-01] MEDS: SODIUM BICARB 50ML SYR 50 ML in SOD CHL 0.45% 1,000 ML IV SCH (08:00)
[2020-08-01] MEDS: METOPROLOL SUCCINATE XL 50 MG TAB PO SCH (10:00)
[2020-08-01] MEDS: DIGOXIN (250MCG/ML) 2 ML AMPULE IV SCH (10:00)
[2020-08-01] MEDS: CHOLECALCIFEROL (VITD3) 2,000 UNIT CAP/TAB PO SCH (10:00)
[2020-08-01] MEDS: ZINC SULFATE 220mg CAP or TAB PO SCH (10:00)
[2020-08-01] MEDS: ASCORBIC ACID 1,000 MG TAB PO SCH (10:00)
[2020-08-01] MEDS: FAMOTIDINE 20 MG TAB PO SCH (10:00)
[2020-08-01] MEDS: DOCUSATE SOD 100 MG CAP PO SCH ×2 (10:00→21:52)
[2020-08-01] MEDS: DONEPEZIL HYDROCHLORIDE 5 MG TAB PO SCH (10:00)
[2020-08-01] MEDS: methylPREDNISolone SOD SUCC 40 MG/ML VL IV SCH ×2 (10:00→21:52)
[2020-08-01] MEDS: APIXABAN 5 MG TAB PO SCH ×2 (10:00→21:52)
[2020-08-01] MEDS: AMIODARONE 450mg/250ml AE 250 ML IV SCH (15:15)
[2020-08-01] MEDS: TAMSULOSIN HYDROCHLORIDE 0.4 MG CAP PO SCH (18:11)
[2020-08-01] MEDS: NOREPINEPHRINE 8 MG/250ML KIT 250 ML IV SCH (19:48)
[2020-08-01] MEDS ORDERED: PPN PER PHARMACY IV NR ×8 (20:00)
[2020-08-01] MEDS: ATORVASTATIN 20 MG TAB PO SCH (21:52)
[2020-08-01] MEDS: amLODIPine BESYLATE 5 MG TAB PO SCH (21:52)
[2020-08-02] VITALS (43 sets, daily range): BP systolic 0–140; BP diastolic 0–72
[2020-08-02] MEDS: InsuLIN REG 1unit/0.01ml Soln (100units/ml) SC SCH ×2 (00:23→05:19)
[2020-08-02] MEDS: PROPOFOL 100 ML IV SCH (00:44)
[2020-08-02] MEDS: MIDAZOLAM DRIP 50 mg/50mL 50 ML IV SCH (02:00)
[2020-08-02] MEDS: dilTIAZem 125mg/125ml BAG KIT 125 ML IV SCH (03:00)
[2020-08-02] MEDS: fentaNYL Drip 2500mCg/250mlNS 250 ML IV SCH ×2 (03:07→03:18)
[2020-08-02 04:16] LABS: Basophils # (auto) 0 10 ^3/uL (0-0.2); Basophils % (auto) 0.1 % (0.0-2.0); Eosinophils # (auto) 0 10 ^3/uL (0-0.8); Hematocrit 37.6 % (41.0-53.0); Hemoglobin 12.7 g/dL (13.5-17.5); Lymphocytes # (auto) 0.4 10 ^3/uL (0.4-5.4); Lymphocytes % (auto) 2.3 % (10.0-50.0); Mean Corpuscular Hemoglobin 31.6 pg (28.0-32.0); Mean Corpuscular Hgb Conc. 33.7 g/dL (32.0-36.0); Mean Corpuscular Volume 93.8 fL (80.0-100.0); Monocytes # (auto) 0.8 10 ^3/uL (0-1.3); Monocytes % (auto) 4.6 % (0.0-12.0); Neutrophils # (auto) 15.5 10 ^3/uL (1.6-8.6); Red Blood Cells 4.01 10^6/uL (4.5-5.90); Red Cell Distribution Width 13.7 % (11.8-14.3); White Blood Cell 16.7 10^3/uL (4.4-10.8)
[2020-08-02 04:35] LABS: Albumin 1.3 g/dL (3.4-5.0); Potassium 4.4 mmol/L (3.5-5.1)
[2020-08-02 04:41] LABS: BUN/Creatinine Ratio 32.6; Bilirubin, Total 0.9 mg/dL (0.2-1.0); Phosphorus 2.4 mg/dL (2.5-4.90); Total Protein 5.1 g/dL (6.4-8.2)
[2020-08-02] MEDS: AMIODARONE 450mg/250ml AE 250 ML IV SCH (05:00)
[2020-08-02] MEDS: PHENYLEPHRINE IV 250 ML IV SCH (05:01)
[2020-08-02] MEDS: GABAPENTIN 300 MG CAP PO SCH (05:06)
[2020-08-02] MEDS: ACCU-CHEK COMFORT CURVE STRIP VI SCH ×2 (05:47)
[2020-08-02] MEDS ORDERED: LORazepam 2MG/ML-1ML VIAL IV PRN (10:00)
[2020-08-02] MEDS ORDERED: MORPHINE SULFATE INJECTION 2 MG/ML SYRG IV PRN (10:00)
[2020-08-02] MEDS ORDERED: NOREPINEPHRINE 8 MG/250ML KIT 0 ML IV ONE (20:38)
== END 2020-08-02 11:40 | DRG 177 ==
LOC: EDBD 07:50 → ER 07:50 → TELE 07:51 → TELE-EAST 10:54 → TELE-WESTW 07-24 03:49 → ICU WEST 07-31 01:34
PROVIDERS: ADMIT Nurse Practitioner Acute Care; ATTEND Internal Medicine
PROC: XW033E5 Introduction of Remdesivir Anti-infective into Peripheral Vein, Percutaneous Approach, New Technology Group 5 (ICD-10-PCS; principal; 2020-07-18)
PROC: 5A09457 Assistance with Respiratory Ventilation, 24-96 Consecutive Hours, Continuous Positive Airway Pressure (ICD-10-PCS; 2020-07-27)
PROC: 04HK33Z Insertion of Infusion Device into Right Femoral Artery, Percutaneous Approach (ICD-10-PCS; 2020-07-31)
PROC: B54BZZA Ultrasonography of Right Lower Extremity Veins, Guidance (ICD-10-PCS; 2020-07-31)
DX: U07.1 COVID-19 (principal); J12.82 Pneumonia due to coronavirus disease 2019; J96.01 Acute respiratory failure with hypoxia; I26.99 Other pulmonary embolism without acute cor pulmonale; G93.41 Metabolic encephalopathy; R65.21 Severe sepsis with septic shock; A41.89 Other specified sepsis; D68.59 Other primary thrombophilia; J98.11 Atelectasis; N17.9 Acute kidney failure, unspecified; D89.839 Cytokine release syndrome, grade unspecified; I10 Essential (primary) hypertension; G30.9 Alzheimer's disease, unspecified; N40.0 Benign prostatic hyperplasia without lower urinary tract symptoms; F12.10 Cannabis abuse, uncomplicated; G62.9 Polyneuropathy, unspecified; E83.39 Other disorders of phosphorus metabolism; E87.5 Hyperkalemia; I48.91 Unspecified atrial fibrillation; E78.5 Hyperlipidemia, unspecified; F02.80 Dementia in other diseases classified elsewhere, unspecified severity, without behavioral disturbance, psychotic disturbance, mood disturbance, and anxiety; J43.9 Emphysema, unspecified; K59.00 Constipation, unspecified; Z66 Do not resuscitate; Z86.73 Personal history of transient ischemic attack (TIA), and cerebral infarction without residual deficits; Z79.01 Long term (current) use of anticoagulants; Z98.52 Vasectomy status; I46.9 Cardiac arrest, cause unspecified
CPT/HCPCS: 36415; 36600; 71045; 71275; 80048; 80053; 80076; 82040; 82306; 82728; 82805; 82962; 83605; 83735; 84100; 84443; 84478; 84484; 85007; 85025; 85027; 85379; 85610; 85730; 86141; 87040; 87070; 87077; 87081; 87186; 87205; 87426; 93005; 93970; 94002; 94003; 94640; 94660; 96361; 96365; 96375; G0378; J0330; J1100; J1815; J2250; J2405; J2704; J7060